=== PATIENT | female | born 1970 | race Caucasian/White ===

== ENCOUNTER → 2016-02-14 | Outpatient (CLI) | payer BC ==
[~2016-02-14] MED LIST: CEPH500C2 PO; FLVHFA110 INH; MULTTAB58 PO; TRAM-10 PO; VNTHFA/IN INH
--- NOTE | 2016-02-14 08:10 | DIAGNOSTIC IMAGING REPORT ---
ABDOMEN ULTRASOUND FOR HERNIA CLINICAL HISTORY: K42.9 Umbilical [id number] Granuloma of [id number] COMPARISON STUDY: None. FINDINGS: Real-time sonographic imaging of the umbilicus was performed. There is a small fat-containing umbilical hernia. This measures approximately 1 cm in size. No fluid levels or masses identified. IMPRESSION: Small fat-containing umbilical hernia. Electronically signed by: Molina Serrano M.D. 02/14/2016 8:08 AM Dictated Date/Time: 02/14/2016 8:07 AM
== END | disposition home or self-care (01) ==
LOC: C.ULTR 07:47
PROVIDERS: ATTEND Surgery
DX: K42.9 Umbilical hernia without obstruction or gangrene (principal); L92.9 Granulomatous disorder of the skin and subcutaneous tissue, unspecified

== ENCOUNTER → 2016-04-14 | Day surgery (SDC) | payer BC ==
[2016-03-25 12:07] VITALS: Ht 165.1 cm; Wt 68.2 kg
[~2016-04-14] VITALS: Ht 165.1 cm; Wt 68.2 kg
[~2016-04-14] MED LIST changes: +ATROPINE SULFATE 0.1 MG/ML 5ML SYR IV PRN; +BUPIVACAINE 0.5 % 5 MG/1 ML MPF 30ML VIAL ONE; +CEFAZOLIN 2000 MG/60 ML D5W IV SCH; +CEFAZOLIN SOD 1 GM VIAL ONE; +DEXAMETHASONE SOD INJ 4 MG/ML VIAL ONE; +EpHEDrine SULFATE INJ 50 MG/ML AMP IV PRN; +FENTANYL CITRATE INJ 50 MCG/1 ML 2 ML VIAL IV PRN; +FENTANYL CITRATE INJ 50 MCG/1 ML 2 ML VIAL ONE; +LACTATED RINGER'S 1000ML 1,000 ML IV SCH; +LIDOCAINE HCL 2% 2 ML VIAL (20MG/ML) ONE; +MIDAZOLAM HCL 1 MG/ML 2ML VIAL ONE; +ONDANSETRON INJ 2 MG/ML 2 ML VIAL ONE; +PROPOFOL IV EMULSION 10 MG/ML 20 ML VIAL IV ONE; +SODIUM CHLORIDE 0.9% 1000ML 1,000 ML IV SCH; +SODIUM CHLORIDE 0.9% INJ 10 ML VIAL ONE; +TRAMADOL HCL 50 MG TAB PO PRN
--- NOTE | 2016-04-14 10:24 | [facility] Post Operative Brief Note ---
Immediate Operative Summary Operative Date Apr 14, 2016. Pre-Operative Diagnosis Granulation of Skin, Umbilical Hernia Post-Operative Diagnosis Same Procedure(s) Performed Umbilical Granuloma Excision, Open Umbilical Hernia Repair Surgeon Dr. Basurto Paperhanger Supervisor Surgeon(s) Pascale Larson PA-C Estimated Blood Loss 5 mL Findings small umb hernia, umb granuloma Specimens A. Umbilical Skin and Hernia Contents Anesthesia LMA Complication(s) None Disposition Recovery Room / PACU
--- NOTE | 2016-04-14 10:35 | Medical Student: [facility] ---
Immediate Operative Summary Operative Date Apr 14, 2016. Pre-Operative Diagnosis Umbilical granuloma, umbilical hernia Post-Operative Diagnosis same Procedure(s) Performed Excision of umbilical granuloma, open umbilical hernia repair Surgeon Dr. Basurto Truck Hopper Surgeon(s) rCaig Larson PA-C Estimated Blood Loss 5cc Findings Granuloma of skin of umbilicus. Small umbilical hernia fatty tissue. Specimens Umbilical skin, umbilical hernia contents. Complication(s) None Disposition Recovery Room / PACU
--- NOTE | 2016-04-14 10:36 | Discharge Instructions-SurgCtr ---
Discharge Instructions Date of Service Apr 14, 2016. Visit Reason for Visit: Umbilical Skin Granuloma, Umbilical Hernia Discharge Discharge Diagnosis / Problem: umbilical hernia, umbilical granuloma Discharge Goals Goal(s): Decrease discomfort, Improve function, Improve disease control Activity Recommendations Activity Limitations: as noted below Lifting Limitations: no more than 10 pounds (for 4 weeks) Exercise/Sports Limitations: until after follow-up appointment May Resume Sexual Activity: when tolerated Shower/Bathe: tomorrow Driving or Machine Use: resume 1 day after discharge SPECIAL CARE INSTRUCTIONS: * Cover incisions and change daily for comfort/drainage. * May use ibuprofen for pain as tolerated. * Expect some swelling and bruising. Call your doctor if: * Temperature above 101 degrees * Pain not relieved by pain medicine ordered * There is increased drainage or redness from any incision * You have any unanswered questions or concerns [phone]. FOLLOW UP VISIT: If not already scheduled, please call the office for a follow-up visit. for next week- some suture removal OFFICE PHONE NUMBER: Dr. Basurto Office Anesthesia . Post Anesthesia Instructions: If you have had General Anesthesia or IV Sedation: * Do not drive today. * Resume driving when surgeon permits. * Do not make important decisions or sign legal documents today. * Call surgeon for: 1. Temperature elevations greater than 101 degrees F. 2. Uncontrollable pain. 3. Excessive bleeding. 4. Persistent nausea and vomiting. 5. Medication intolerance (nausea, vomiting or rash). * For nausea and vomiting use only clear liquids such as: tea, soda, bouillon until nausea subsides, then gradually increase diet as tolerated. * If you have any concerns or questions, call your surgeon's office. If physician is unavailable and it is an emergency, call 911 or go to the nearest emergency room. . Diet Recommendations Home Diet: resume previous diet Procedures Procedures Performed: Umbilical Granuloma Excision, Open Umbilical Hernia Repair Pending Studies Studies pending at discharge: no Medical Emergencies . Who to Call and When: Medical Emergencies: If at any time you feel your situation is an emergency, please call 911 immediately. . Non-Emergent Contact Non-Emergency issues call your: Surgeon . . "Provider Documentation" section prepared by Lorenzo Basurto.
[2016-04-14 11:16] VITALS: TEMP 36.8
[2016-04-14 11:44] VITALS: PULSE 74; O2SAT 99
[2016-04-14 11:47] VITALS: BP 150/95
--- NOTE | 2016-04-14 11:52 | Anesthesia Progress Nt - [facility] ---
Anesthesia Post Op Note Date & Time Apr 14, 2016 at 11:53 Vital Signs Pain Intensity: 0 Vital Signs Past 12 Hours Date Time Temp Pulse Resp B/P Pulse Ox O2 Delivery O2 Flow Rate FiO2 04/14/16 11:47 150/95 04/14/16 11:44 74 16 99 Room Air 04/14/16 11:16 36.8 61 16 148/86 99 Room Air 04/14/16 11:02 66 16 98 04/14/16 11:02 65 16 04/14/16 11:02 36.8 61 16 147/87 98 Room Air 04/14/16 11:00 147/87 04/14/16 10:57 63 12 96 04/14/16 10:57 64 12 04/14/16 10:55 146/89 04/14/16 10:52 68 15 97 04/14/16 10:52 67 15 04/14/16 10:50 150/87 04/14/16 10:47 70 11 98 04/14/16 10:47 69 11 04/14/16 10:45 141/87 04/14/16 10:42 70 15 100 04/14/16 10:42 70 15 04/14/16 10:41 72 14 04/14/16 10:41 71 14 100 04/14/16 10:40 151/83 04/14/16 10:36 84 12 04/14/16 10:36 84 12 100 04/14/16 10:35 145/89 04/14/16 10:31 101 04/14/16 10:31 37.0 76 16 176/97 99 Diffusion Mask 6 04/14/16 10:31 101 176/97 99 04/14/16 08:50 36.6 65 16 149/91 99 Room Air Notes Mental Status: alert / awake / arousable, participated in evaluation Pt Amnestic to Procedure: Yes Nausea / Vomiting: adequately controlled Pain: adequately controlled Airway Patency, RR, SpO2: stable & adequate BP & HR: stable & adequate Hydration State: stable & adequate Anesthetic Complications: no major complications apparent
--- NOTE | 2016-04-14 15:48 | OPERATIVE REPORT ---
DATE OF OPERATION: 04/14/2016 NAME OF OPERATION: Umbilical hernia repair with excision of an umbilical granuloma. PREOPERATIVE DIAGNOSES: Umbilical granuloma and umbilical hernia. POSTOPERATIVE DIAGNOSES: Same. STAFF SURGEON: Dr. Basurto. RESPITE CARE PROVIDER: Craig Larson PA-C ANESTHESIA: General LMA with 0.5% plain Marcaine. PROCEDURE: The patient was brought into the operating room and placed on the operating table in supine position. Her abdomen was prepped and draped in the usual fashion around the umbilicus. Incision was made in the lower edge of the umbilicus, carrying dissection down, identifying the fascia, disconnecting the umbilicus from the fascia, identifying a 5-mm umbilical hernia. She also had what appeared to be a granuloma associated with her umbilicus. Some of the hernia sac was excised and sent and then the umbilical granuloma excised and sent. The base of the umbilicus was then reapproximated deeply using interrupted 4-0 chromic catgut suture and then, the umbilicus was reattached to the fascia using 2-0 chromic catgut suture, then the skin reapproximated using interrupted 5-0 Prolene suture. Dressing applied and patient transferred to recovery room in stable condition. I attest to the content of the Intraoperative Record and any orders documented therein. Any exceptio ns are noted below.
== END | disposition home or self-care (01) ==
LOC: X.SURG 08:16
PROVIDERS: ATTEND Surgery
DX: K42.9 Umbilical hernia without obstruction or gangrene (principal); N80.6 Endometriosis in cutaneous scar